=== PATIENT | male | born 1980 | race African-American/Black ===

== ENCOUNTER 2018-07-05 20:23 | Emergency (ER) | payer SELFPAY ==
[~2018-07-05] VITALS: Ht 188 cm; Wt 103.4 kg
[2018-07-05 21:16] VITALS: BP 128/64
[2018-07-05] MEDS ORDERED: NAPR-683 PO (21:22)
[2018-07-05] MEDS ORDERED: CYCL10TA2 PO (21:22)
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
== END 2018-07-05 21:36 | disposition home or self-care (01) ==
LOC: ER 20:23
DX: S16.1XXA Strain of muscle, fascia and tendon at neck level, initial encounter (principal); M54.5 Low back pain; R51 Headache; V43.52XA Car driver injured in collision with other type car in traffic accident, initial encounter; Y93.89 Activity, other specified; Y92.410 Unspecified street and highway as the place of occurrence of the external cause; Y99.8 Other external cause status
CPT/HCPCS: 99283